=== PATIENT | male | born 1965 | race Caucasian/White ===

== ENCOUNTER 2017-09-05 11:55 | Emergency (ER) | payer OTHER ==
--- NOTE | 2017-09-05 13:50 | EDPHY ---
H & P Smoking Status: Current some day smoker Time Seen by Provider: 09/05/17 13:09 HPI/ROS: CHIEF COMPLAINT: Head injury with laceration HISTORY OF PRESENT ILLNESS: Patient is a 51-year-old male with no significant past medical history here with his reporting head injury just prior to arrival. Patient was at work at the [employer] where he is dumping something in a distress eyes garbage bin when the metal lid accidentally closed and landed on his head. He reports pain but no loss consciousness. He takes no blood thinners. There were no drugs or alcohol on board. Denies vision changes, neck pain, arm paresthesias, nausea, vomiting, dizziness. REVIEW OF SYSTEMS: Constitutional: No fever, no chills. Eyes: No discharge. ENT: No sore throat. Cardiovascular: No chest pain, no palpitations. Respiratory: No cough, no shortness of breath. Gastrointestinal: No abdominal pain, no vomiting. Genitourinary: No hematuria. Musculoskeletal: No back pain. Skin: No rashes. Neurological: + headache. (José Luis Shaw) Physical Exam: General Appearance: Alert and no distress. Eyes: Pupils equal and round no injection. No hemotympanum Respiratory: Chest is nontender, lungs are clear to auscultation. Cardiac: regular rate and rhythm. Gastrointestinal: Abdomen is soft and nontender, no masses, bowel sounds normal. Musculoskeletal: Neck is supple and nontender. Extremities have full range of motion and are nontender. Skin: No rashes. 3.5 cm curved laceration to the forehead. No crepitus. No Salguero signs or raccoon eyes. (José Luis Shaw) Constitutional: Initial Vital Signs Temperature (C) 37 C 09/05/17 12:06 Heart Rate 81 09/05/17 12:06 Respiratory Rate 18 09/05/17 12:06 Blood Pressure 182/95 H 09/05/17 12:06 O2 Sat (%) 96 09/05/17 12:06 O2 Delivery Mode Room Air Allergies/Adverse Reactions: No Known Allergies Allergy (Unverified 09/05/17 12:05) Home Medications: Medication Instructions Recorded Hydrochlorothiazide 09/05/17 Losartan Potassium 09/05/17 Primidone 09/05/17 Medical Decision Making Procedures: Procedure: Laceration repair. Verbal consent was obtained from the patient. The 3.5 cm laceration on the forehead was anesthetized in the usual fashion using 1% lidocaine with epi. 10 cc were used.. The wound was irrigated, draped and explored to its base with a gloved finger. There were no deep structures involved. No tendon injury was identified. The wound was repaired with 7 simple interrupted sutures using 6 0 Prolene. The wound repair was closed tightly. There were no complications. The patient tolerated the procedure well. The procedure was performed by myself. (José Luis Shaw) Differential Diagnosis: 51-year-old male here with minor closed head injury with his scalp/facial laceration. Given the weight of the dumpster lid that fell on his head CT scan was offered to rule out brain bleed or skull fracture. Patient declined and he and his agree to follow up closely for any worsening symptoms. Laceration repair as detailed above. Patient feels improved after laceration repair and bleeding was well controlled at time of discharge. (José Luis Shaw) Other Provider: The patient was evaluated and managed by the physician assistant passenger locomotive engineer. My signature indicates that I have reviewed this chart and I agree with the findings and plan of care as documented. I am the secondary supervising physician. (Megan Ngo) Departure - Departure Disposition: Home, Routine, Self-Care Clinical Impression: Minor closed head injury, Facial laceration Condition: Good Instructions: Laceration (ED) Additional Instructions: Please return to the ER for any signs of wound infection or for worsening headache, dizziness, vomiting breathing other worsening or worrisome symptoms. Return to the ER and 7 days for suture removal Referrals: AYANA ZARCO [Other] - As per Instructions
[2017-09-05 14:41] VITALS: BP 160/90
== END 2017-09-12 11:22 | disposition home or self-care (01) ==
PROC: 0HQ1XZZ Repair Face Skin, External Approach (ICD-10-PCS; principal; 2017-09-05)
DX: S01.81XA Laceration without foreign body of other part of head, initial encounter (principal); W26.8XXA Contact with other sharp object(s), not elsewhere classified, initial encounter; Y99.0 Civilian activity done for income or pay; Y93.89 Activity, other specified; F17.200 Nicotine dependence, unspecified, uncomplicated